=== PATIENT | female | born 1980 | race Caucasian/White ===

== ENCOUNTER 2019-06-05 12:15 | Emergency (ER) | payer MEDICAID ==
[~2019-06-05] VITALS: Ht 165.1 cm; Wt 85.6 kg
[~2019-06-05 12:15] MED LIST: HYDR-3498 PO; IBUP-1542 PO; ONDA4TAB8 PO
[2019-06-05 12:19] VITALS: BP 148/58; PULSE 95; RESP 17; Ht 165.1 cm; Wt 85.6 kg
--- NOTE | 2019-06-05 12:52 | ERD ---
ER Documentation Chief Complaint Chief Complaint VAG BLEEDING, PT 5 WKS PG HPI 38-year-old G5, P4 and her fifth week of female presents with complaint of vaginal spotting since yesterday and pelvic contractions started today. Patient states is not been through any pads but is rather just spotting. Patient states she does not have an OB. LMP was sometime in March but she is unsure of the exact date. States the pain is currently 8 out of 10 and is located in the pelvic area mostly in the lower left area. Patient denies any nausea, vomiting, diarrhea, fevers, chills, flank pain, dysuria, hematuria, lightheadedness, palpitations, chest pain. ROS All systems reviewed and are negative except as per history of present illness. Medications Home Meds Active Scripts Ibuprofen* (Ibuprofen*) 600 Mg Tablet, 600 MG PO Q8, #20 TAB Prov:MORELIA,BRITTNEE DO 12/22/15 Ondansetron Hcl* (Zofran*) 4 Mg Tablet, 4 MG PO Q8H PRN for NAUSEA AND/OR VOMITING, #10 TAB Prov:BRITTNEE THIBODEAUX DO 12/22/15 Hydrocodone Bit-Acetaminophen* (Lyburn*) 5-325 Mg Tab, 1 TAB PO Q6 PRN for PAIN, #14 TAB Prov:MORELIABRITTNEE DO 12/22/15 Allergies Allergies: Coded Allergies: No Known Drug Allergy (Verified Allergy, Unknown, 12/22/15) PMhx/Soc History of Surgery: Yes () Hx Alcohol Use: No Hx Substance Use: No Hx Tobacco Use: No FmHx Family History: No diabetes, No coronary disease, No other Physical Exam Vitals Vital Signs Date Temp Pulse Resp B/P (MAP) Pulse Ox O2 O2 Flow FiO2 Time Delivery Rate 06/05/19 99.0 95 17 148/58 99 12:19 (88) Physical Exam Const: No acute distress Head: Atraumatic Eyes: Normal Conjunctiva ENT: Normal External Ears, Nose and Mouth. Neck: Full range of motion. No meningismus. Resp: Clear to auscultation bilaterally Cardio: Regular rate and rhythm, no murmurs Abd: Soft, non tender, non distended. Normal bowel sounds. Negative McBurney's. Skin: No petechiae or rashes Back: No midline or flank tenderness Ext: No cyanosis, or edema Neur: Awake and alert Psych: Normal Mood and Affect Result Diagram: 06/05/19 1303 Results 24 hrs Laboratory Tests Test 06/05/19 13:03 White Blood Count 10.1 10^3/ul Red Blood Count 3.98 10^6/ul Hemoglobin 12.3 g/dl Hematocrit 36.7 % Mean Corpuscular Volume 92.2 fl Mean Corpuscular Hemoglobin 30.9 pg Mean Corpuscular Hemoglobin Concent 33.5 g/dl Red Cell Distribution Width 13.7 % Platelet Count 327 10^3/UL Mean Platelet Volume 10.8 fl Immature Granulocytes % 0.200 % Neutrophils % 63.2 % Lymphocytes % 28.1 % Monocytes % 5.2 % Eosinophils % 3.0 % Basophils % 0.3 % Nucleated Red Blood Cells % 0.0 /100WBC Immature Granulocytes # 0.020 10^3/ul Neutrophils # 6.4 10^3/ul Lymphocytes # 2.8 10^3/ul Monocytes # 0.5 10^3/ul Eosinophils # 0.3 10^3/ul Basophils # 0.0 10^3/ul Nucleated Red Blood Cells # 0.0 10^3/ul Urine Color STRAW Urine Clarity CLEAR Urine pH 6.0 Urine Specific [place] 1.010 Urine Ketones NEGATIVE mg/dL Urine Nitrite NEGATIVE mg/dL Urine Bilirubin NEGATIVE mg/dL Urine Urobilinogen NEGATIVE mg/dL Urine Leukocyte Esterase NEGATIVE [place] Urine Microscopic RBC > 182 /HPF Urine Microscopic WBC 1 /HPF Urine Squamous Epithelial Cells FEW /HPF Urine Hemoglobin 3+ mg/dL Urine Glucose NEGATIVE mg/dL Urine Total Protein NEGATIVE mg/dl Current Medications Medications Dose Sig/Paige Start Time Status Last (Trade) Ordered Route PRN Stop Time Admin Dose Reason Admin 1 tab ONCE ONCE 06/05/19 DC 06/05/19 Acetaminophen PO 13:00 06/05/19 13:06 / 13:01 Hydrocodone Bitart (Lyburn (5/325)) Procedures/MDM DIAGNOSTIC IMAGING REPORT Patient: JUAN CORTEZ : 1980 Age: 38 Sex: F MR #: [id number] DOS: 06/05/19 1241 Ordering MD: SIMA PEREIRA Location: [facility] Room/Bed: PROCEDURE: US Pelvis/OB. CLINICAL INDICATION: vaginal bleeding TECHNIQUE: Multiple sonographic images of the pelvis were obtained utilizing a transabdominal and endovaginal technique. The images were reviewed on a PACS workstation. COMPARISON: None. FINDINGS: There is a small irregular cystic structure within the endometrium, in the lower uterine segment, measuring 1.5 cm which would correspond to a calculated gestational age of 6 weeks and 0 days. No pole or yolk sac is yet v isualized. The ovaries are visualized. No significant free fluid is present within the pelvis. RPTAT: AA IMPRESSION: Possible early intrauterine at 6 weeks and 0 days, seen in the lower uterine segment. No pole or yolk sac is yet visualized. The findings may represent an in progress. Close followup ultrasound and hCG is recommended. .Hernando Barnett MD, Date Time Electronically viewed and signed by .Hernando Barnett MD, on 06/05/2019 13:53 .S/ CC: SIMA PEREIRA [id number] ER Course: CBC, UA, beta quant HCG, type and RH, vaginal US/abdominal US ordered. MDM: CBC, UA, beta quant HCG, type and RH, vaginal US/abdominal US ordered. All results within limits. Ultrasound showed possible intrauterine however no pole or yolk sac was visualized. because ectopic can not be rulled out patient advised to return in 48 hours for repeat HCG levels and US. At this point I have low suspicion for ectopic based on results of US, hemodynamic stability, physical exam and patient history. I have low suspicion for septic , pyelonephritis, placenta abrupta, appendicitis, cholecystitis, bowel obstruction, ovarian torsion, symptomatic anema, PID, surgical abdomen, hemorrhage, or other life threatening conditions based on patient history, physical exam, and lab/imaging results. At time of discharge patient was hemodynamically stable. At this time, patient is stable for discharge and outpatient management. I have instructed the patient to follow-up with his/her primary care physician in 1-2 days. I have discussed with the patient the possibility of needing to see a specialist for further workup and imaging studies if symptoms persist. I have instructed the patient to promptly return to the ER for any new or worsening symptoms including but not limited to increased pain, fever, nausea, vomiting, weakness or LOC. The patient and/or family expressed understanding of and agreement with this plan. All questions were answered. Home care instructions were provided. Communication with patient both during the exam and instructions for discharge were performed with using a block making machine operator . Patient gave verbal confirmation to the practitioner, through the block making machine operator, that they understood everythign that was being said to them. DISCLAIMER: Inadvertent spelling and grammatical errors are likely due to EHR/dictation software use and do not reflect on the overall quality of patient care. Also, please note that the electronic time recorded on this note does not necessarily reflect the actual time of the patient encounter. Departure Diagnosis: Primary Impression: Vaginal bleeding in patient at less than 20 weeks gestation Additional Impression: Pelvic pain affecting Condition: SIMA Parks Jun 05, 2019 12:52
[2019-06-05] MEDS ORDERED: HYDROCODONE/APAP (5/325) TAB PO ONE (13:00)
[2019-06-05] MEDS ORDERED: HYDR-4011 PO (13:59)
== END 2019-06-05 14:23 | disposition home or self-care (01) ==
LOC: FTE 12:15
DX: O20.9 Hemorrhage in early pregnancy, unspecified (principal); Z3A.01 Less than 8 weeks gestation of pregnancy
CPT/HCPCS: 36415; 76801; 76817; 81001; 84702; 85025; 86900; 86901; Z7502; Z7610